=== PATIENT | female | born 1940 | race African-American/Black ===

== ENCOUNTER 2018-07-27 14:31 | Emergency (ER) | payer OTHER ==
[~2018-07-27] VITALS: Ht 167.6 cm; Wt 59.0 kg
[~2018-07-27 14:31] MED LIST: ARICEPT5 MG; BISOPROLOL-HCT1 EACH; LEVOXYL75 MCG; MIRTAZAPINE15 MG; NORVASC5 MG
== END 2018-07-27 20:10 | disposition home or self-care (01) ==
LOC: ER 14:31
DX: M54.89 Other dorsalgia (principal); B34.9 Viral infection, unspecified; R50.9 Fever, unspecified